=== PATIENT | female | born 1970 | race African-American/Black ===

== ENCOUNTER 2016-07-26 22:01 | Emergency (ER) | payer MEDICAID ==
[~2016-07-26] VITALS: Ht 167.6 cm; Wt 127.0 kg
[2016-07-26] MEDS ORDERED: NS 55ml IV ONE (22:21)
[2016-07-26] MEDS ORDERED: HYDROmorphone 1mg/ml Carpuject ONE (22:37)
[2016-07-26] MEDS ORDERED: HYDROmorphone 1 MG in NS 55 ML IV ONE (22:45)
[2016-07-26 22:51] LABS: BASOPHILS % (AUTO) 0.7 % (0.0-2.0); LYMPHOCYTES % (AUTO) 13.5 % (20.0-45.0); MEAN CORPUSCULAR HEMOGLOBIN 28.7 PG (27.0-31.0); MEAN CORPUSCULAR HGB CONC 35.6 G/DL (32.0-36.0); MEAN CORPUSCULAR VOLUME 81 FL (80-99); MEAN PLATELET VOLUME 7.8 FL (6.5-10.1); MONOCYTES % (AUTO) 3.6 % (1.0-10.0); NEUTROPHILS % (AUTO) 82.2 % (45.0-75.0); PLATELET COUNT 212 K/UL (150-450); RED BLOOD COUNT 5.38 M/UL (4.20-5.40); RED CELL DISTRIBUTION WIDTH 13.4 % (11.6-14.8); WHITE BLOOD COUNT 16.6 K/UL (4.8-10.8)
[2016-07-26 22:52] LABS: APPEARANCE,URINE CLEAR; KETONES,URINE 3+ (NEGATIVE); LEUKOCYTE ESTERASE ,URINE 1+ (NEGATIVE); NITRITE,URINE NEGATIVE (NEGATIVE); PH,URINE 5 (4.5-8.0); PROTEIN,URINE 2+ (NEGATIVE); UROBILINOGEN,URINE NORMAL MG/DL (0.0-1.0)
[2016-07-26 23:03] LABS: BACTERIA,URINE FEW /HPF; SQUAMOUS EPITHELIAL CELL,UR FEW /LPF (NONE/OCC)
[2016-07-26 23:06] LABS: ALANINE AMINOTRANSFERASE 9 U/L (3-33); ANION GAP 19 (5-15); ASPARTATE AMINO TRANSFERASE 12 U/L (5-40); CALCIUM 9.8 mg/dL (8.6-10.2); CARBON DIOXIDE 19 mEQ/L (20-30); CHLORIDE 99 mEQ/L (98-107); CREATININE 0.9 mg/dL (0.5-0.9); GLOMERULAR FILTRATION RATE > 60 mL/min (>60); HEMOLYSIS 3; LIPASE 17 U/L (< 60); POTASSIUM 3.4 mEQ/L (3.4-4.9); SODIUM 137 mEQ/L (135-145); TOTAL PROTEIN 8.4 g/dL (6.6-8.7)
[2016-07-26 23:37] VITALS: BP 142/87
[2016-07-26] MEDS ORDERED: ZOFRAN4 MG ORAL (23:47)
--- NOTE | 2016-07-26 23:47 | Emergency Room Report ---
History of Present Illness General Chief Complaint: Chest Pain Source: Patient, EMS Present Illness HPI Is a 46-year-old female with no significant past medical history. She said any marijuana user. She presents with chief complaint of abdominal pain with vomiting and diarrhea. Has burning sensation in her chest. She was concerned and she called 911. She said that she chest pain. She was given nitroglycerin and aspirin without much relief. No fever or chills. No shortness of breath or exertional component. Similar symptom in the past. Allergies: Coded Allergies: POTASSIUM (Verified Allergy, Unknown, 07/26/16) Patient History Past Medical History: see triage record, old chart reviewed, HTN Past Surgical History: other Pertinent Family History: none Social History: Reports: drug use - MJ, Denies: smoking Last Menstrual Period: JULY 03 Now: No Immunizations: other Reviewed Nursing Documentation: PMH: Agreed, PSxH: Agreed Nursing Documentation-PMH Hx Hypertension: Yes Review of Systems Eye: Denies: blurred vision, eye pain ENT: Denies: ear pain, nose congestion, throat swelling Respiratory: Denies: cough, shortness of breath Cardiovascular: Reports: chest pain, Denies: palpitations Gastrointestinal: Reports: abdominal pain, vomiting Musculoskeletal: Denies: back pain, joint pain Skin: Denies: rash Neurological: Denies: headache, numbness Endocrine: Denies: increased thirst, increased urine Hematologic/Lymphatic: Denies: easy bruising All Other Systems: negative except mentioned in HPI Physical Exam Vital Signs Date Time Temp Pulse Resp B/P Pulse Ox O2 Delivery O2 Flow Rate FiO2 07/26/16 22:02 98.1 96 18 133/93 98 Room Air vitals normal. Sp02 EP Interpretation: reviewed, normal General Appearance: well appearing, no apparent distress, alert Head: normocephalic, atraumatic Eyes: bilateral eye EOMI, bilateral eye PERRL ENT: hearing grossly normal, normal pharynx Neck: full range of motion, supple, no meningismus Respiratory: chest non-tender, lungs clear, normal breath sounds Cardiovascular #1: regular rate, rhythm, no murmur Gastrointestinal: normal bowel sounds, non tender, no mass, no organomegaly, no bruit, non-distended Musculoskeletal: back normal, gait/station normal, normal range of motion Psychiatric: mood/affect normal Skin: warm/dry Medical Decision Making Diagnostic Impression: Primary Impression: Chest pain Qualified Codes: R07.9 - Chest pain, unspecified Additional Impressions: Nausea vomiting and diarrhea Proteinuria Qualified Codes: R80.9 - Proteinuria, unspecified ER Course Is present with vomiting and diarrhea. Her chest pain is probably reflux in nature. No evidence of ACS, PE, dissection to name a few. No evidence of obstruction. She felt better now. This may be cyclic vomiting syndrome secondary to marijuana abuse. Lab Results Impression Labs with mild leukocytosis EKG Diagnostic Results Rate: normal Rhythm: NSR ST Segments: no acute changes Rhythm Strip Diag. Results EP Interpretation: yes Rate: 98 Rhythm: NSR, no PVC's, no ectopy Last Vital Signs Date Time Temp Pulse Resp B/P Pulse Ox O2 Delivery O2 Flow Rate FiO2 07/26/16 23:37 99.0 96 22 142/87 100 Room Air Status: improved Disposition: HOME, SELF-CARE Condition: Stable Scripts Ondansetron (Zofran) 4 Mg Tablet 4 MG ORAL Q6H Y for Nausea & Vomiting, #10 TAB 0 Refills Prov: ERIC EASTMAN M.D. 07/26/16 Referrals: NON PHYSICIAN (PCP) Additional Instructions: Follow up with your doctor in 7 days. Return if worse. ERIC EASTMAN M.D. July 26, 2016 23:47
[2016-07-27 00:12] VITALS: BP 142/87
--- NOTE | 2016-07-27 16:22 | Cardiology Report ---
APPROVED REPORT EKG Measurement Heart [id number] Sinus tachycardia Possible Left atrial enlargement Borderline ECG
== END 2016-07-27 00:15 | disposition home or self-care (01) ==
LOC: EDBD 22:01 → EMR 22:20
DX: R07.89 Other chest pain (principal); R11.2 Nausea with vomiting, unspecified; R19.7 Diarrhea, unspecified; R80.9 Proteinuria, unspecified
CPT/HCPCS: 36415; 80053; 81003; 81025; 83690; 85025; 93005; 99283; J1170; J2405

== ENCOUNTER 2016-09-15 19:33 | Emergency (ER) | payer MEDICAID ==
[~2016-09-15] VITALS: Ht 167.6 cm; Wt 158.8 kg
[~2016-09-15 19:33] MED LIST: NKM; ZOFRAN4 MG ORAL
[2016-09-15] MEDS ORDERED: Famotidine 20 MG/ 2ML VIAL IVP ONE (20:00)
[2016-09-15] MEDS ORDERED: Metoclopramide 10mg/2ml Inj IVP ONE (20:00)
[2016-09-15] MEDS ORDERED: DiphenhydrAMINE 50mg/ml Inj IVP ONE (20:00)
[2016-09-15] MEDS ORDERED: Morphine Sulfate 2mg/ml Inj IVP ONE (20:00)
[2016-09-15 21:13] LABS: BASOPHILS % (AUTO) 0.7 % (0.0-2.0); EOSINOPHILS % (AUTO) 0.2 % (0.0-3.0); MEAN CORPUSCULAR HEMOGLOBIN 26.8 PG (27.0-31.0); MEAN CORPUSCULAR HGB CONC 33.4 G/DL (32.0-36.0); MEAN CORPUSCULAR VOLUME 80 FL (80-99); MONOCYTES % (AUTO) 3.1 % (1.0-10.0); PLATELET COUNT 230 K/UL (150-450); RED BLOOD COUNT 5.22 M/UL (4.20-5.40); RED CELL DISTRIBUTION WIDTH 13.3 % (11.6-14.8); WHITE BLOOD COUNT 12.8 K/UL (4.8-10.8)
[2016-09-15 21:13] LABS: APPEARANCE,URINE CLOUDY; KETONES,URINE 3+ (NEGATIVE); LEUKOCYTE ESTERASE ,URINE NEGATIVE (NEGATIVE); NITRITE,URINE NEGATIVE (NEGATIVE); PH,URINE 6 (4.5-8.0); PROTEIN,URINE 2+ (NEGATIVE); UROBILINOGEN,URINE NORMAL MG/DL (0.0-1.0)
[2016-09-15 21:20] LABS: PROTHROMBIN TIME 10.1 SEC (9.30-11.50)
[2016-09-15 21:22] LABS: BACTERIA,URINE FEW /HPF; RBC,URINE 0-2 /HPF (0 - 2); SQUAMOUS EPITHELIAL CELL,UR FEW /LPF (NONE/OCC); WBC,URINE 0-2 /HPF (0 - 2)
[2016-09-15 21:27] LABS: ALANINE AMINOTRANSFERASE 23 U/L (3-33); ANION GAP 19 (5-15); ASPARTATE AMINO TRANSFERASE 32 U/L (5-40); CALCIUM 9.8 mg/dL (8.6-10.2); CARBON DIOXIDE 20 mEQ/L (20-30); CHLORIDE 97 mEQ/L (98-107); CREATININE 0.8 mg/dL (0.5-0.9); GLOMERULAR FILTRATION RATE > 60 mL/min (>60); HEMOLYSIS 2; LIPASE 22 U/L (< 60); POTASSIUM 3.4 mEQ/L (3.4-4.9); SODIUM 136 mEQ/L (135-145); TOTAL PROTEIN 8.2 g/dL (6.6-8.7)
[2016-09-15 22:30] VITALS: BP 125/79
--- NOTE | 2016-09-15 22:35 | Emergency Room Report ---
History of Present Illness General Chief Complaint: Vomiting Source: Patient Present Illness Allergies: Coded Allergies: POTASSIUM (Verified Allergy, Unknown, 07/26/16) Patient History Past Medical History: see triage record Last Menstrual Period: unk Reviewed Nursing Documentation: PMH: Agreed, PSxH: Agreed Nursing Documentation-PMH Past Medical History: No Stated History Hx Hypertension: Yes Physical Exam Vital Signs Date Time Temp Pulse Resp B/P Pulse Ox O2 Delivery O2 Flow Rate FiO2 09/15/16 19:29 97.9 84 16 136/89 97 Room Air Medical Decision Making Diagnostic Impression: Primary Impression: Abdominal pain Additional Impression: Vomiting ER Course Patient improved. Kena PO. Laboratory Tests Test 09/15/16 19:37 09/15/16 19:50 Urine Color Pale yellow Urine Appearance Cloudy Urine pH 6 (4.5-8.0) Urine Specific [place] 1.010 (1.005-1.035) Urine Protein 2+ (NEGATIVE) H Urine Glucose (UA) Negative (NEGATIVE) Urine Ketones 3+ (NEGATIVE) H Urine Occult Blood Negative (NEGATIVE) Urine Nitrite Negative (NEGATIVE) Urine Bilirubin Negative (NEGATIVE) Urine Urobilinogen Normal MG/DL (0.0-1.0) Urine Leukocyte Esterase Negative (NEGATIVE) Urine RBC 0-2 /HPF (0 - 2) Urine WBC 0-2 /HPF (0 - 2) Urine Squamous Epithelial Cells Few /LPF (NONE/OCC) Urine Bacteria Few /HPF (NONE) White Blood Count 12.8 K/UL (4.8-10.8) H Red Blood Count 5.22 M/UL (4.20-5.40) Hemoglobin 14.0 G/DL (12.0-16.0) Hematocrit 41.8 % (37.0-47.0) Mean Corpuscular Volume 80 FL (80-99) Mean Corpuscular Hemoglobin 26.8 PG (27.0-31.0) L Mean Corpuscular Hemoglobin Concent 33.4 G/DL (32.0-36.0) Red Cell Distribution Width 13.3 % (11.6-14.8) Platelet Count 230 K/UL (150-450) Mean Platelet Volume 8.0 FL (6.5-10.1) Neutrophils (%) (Auto) 81.0 % (45.0-75.0) H Lymphocytes (%) (Auto) 15.0 % (20.0-45.0) L Monocytes (%) (Auto) 3.1 % (1.0-10.0) Eosinophils (%) (Auto) 0.2 % (0.0-3.0) Basophils (%) (Auto) 0.7 % (0.0-2.0) Prothrombin Time 10.1 SEC (9.30-11.50) Prothrombin Time INR 1.0 (0.9-1.1) PTT 26 SEC (23-33) Sodium Level 136 mEQ/L (135-145) Potassium Level 3.4 mEQ/L (3.4-4.9) Chloride Level 97 mEQ/L (98-107) L Carbon Dioxide Level 20 mEQ/L (20-30) Anion Gap 19 (5-15) H Blood Urea Nitrogen 9 mg/dL (7-23) Creatinine 0.8 mg/dL (0.5-0.9) Estimate Glomerular Filtration Rate > 60 mL/min (>60) Glucose Level 112 mg/dL (74-106) H Calcium Level 9.8 mg/dL (8.6-10.2) Total Bilirubin 0.6 mg/dL (0.0-1.2) Aspartate Amino Transferase (AST) 32 U/L (5-40) Alanine Aminotransferase (ALT) 23 U/L (3-33) Alkaline Phosphatase 66 U/L (35-104) Total Protein 8.2 g/dL (6.6-8.7) Albumin 4.2 g/dL (3.5-5.2) Globulin 4.0 g/dL Albumin/Globulin Ratio 1.0 (1.0-2.7) Lipase 22 U/L (< 60) EKG Diagnostic Results Rate: normal Rhythm: NSR ST Segments: no acute changes Rhythm Strip Diag. Results EP Interpretation: yes Rhythm: NSR, no PVC's, no ectopy Status: improved Referrals: NOT CHOSEN ABRAHAM/,REFERRING (PCP) Alejandro Gutierrez M.D. Sep 15, 2016 22:35
[2016-09-15] MEDS ORDERED: MAALOX MAXIMUM355 M1 PO (23:03)
[2016-09-15] MEDS ORDERED: PEPCID20 MG ORAL (23:03)
[2016-09-15] MEDS ORDERED: ACETAMINOPHEN-1 EAC1 ORAL (23:03)
[2016-09-15] MEDS ORDERED: PHENERGAN25 M1 ORAL (23:03)
[2016-09-15 23:21] VITALS: BP 110/89
== END 2016-09-15 23:24 | disposition home or self-care (01) ==
LOC: EDBD 19:33 → EMR 21:08
DX: R11.10 Vomiting, unspecified (principal); R10.9 Unspecified abdominal pain; I10 Essential (primary) hypertension
CPT/HCPCS: 36415; 80053; 81003; 83690; 85025; 85610; 85730; 93005; 96374; 96375; 99284; J1200; J2270; J2765; S0028

== ENCOUNTER 2017-06-29 19:26 | Inpatient (IN) | payer MEDICAID ==
[~2017-06-29] VITALS: Ht 167.6 cm; Wt 170.1 kg
[~2017-06-29 19:26] MED LIST changes: +ACETAMINOPHEN-1 EAC1 ORAL; +MAALOX MAXIMUM355 M1 PO; +PEPCID20 MG ORAL; +PHENERGAN25 M1 ORAL
[2017-06-29] MEDS ORDERED: NORCO 10-325 T1 EACH ORAL (19:29)
[2017-06-29 19:40] VITALS: BP 150/88
[2017-06-29] MEDS ORDERED: Morphine Sulfate 2mg/ml Inj IVP ONE (19:45)
--- NOTE | 2017-06-29 19:45 | Emergency Room Report ---
History of Present Illness General Chief Complaint: Abdominal Pain Source: Patient Present Illness HPI Patient present with diffuse lower abdominal pain Started on Monday Patient reports that she had a cholecystectomy in the middle of April Denies any fevers or chills Denies any chest pain or shortness of breath Patient did have several vomiting episodes Denies any diarrhea denies any dysuria frequency Allergies: Coded Allergies: POTASSIUM (Verified Allergy, Unknown, 07/26/16) Patient History Past Medical History: see triage record Pertinent Family History: none Now: No Reviewed Nursing Documentation: PMH: Agreed; PSxH: Agreed Nursing Documentation-PMH Hx Hypertension: Yes Review of Systems All Other Systems: negative except mentioned in HPI Physical Exam Vital Signs Date Time Temp Pulse Resp B/P (MAP) Pulse Ox O2 Delivery O2 Flow Rate FiO2 06/29/17 19:20 98.1 98 18 155/89 95 Room Air 98.1 Sp02 EP Interpretation: reviewed, normal General Appearance: well appearing, no apparent distress Head: normocephalic, atraumatic Eyes: bilateral eye PERRL, bilateral eye EOMI ENT: hearing grossly normal, normal pharynx, TMs + canals normal, uvula midline Neck: full range of motion, supple, no meningismus, no bony tend Respiratory: lungs clear, normal breath sounds, no rhonchi, no respiratory distress, no retraction, no accessory muscle use Cardiovascular #1: normal peripheral pulses, regular rate, rhythm, no edema, no gallop, no JVD, no murmur Gastrointestinal: normal bowel sounds, no organomegaly, non-distended, no guarding, no hernia, no pulsatile mass, no rebound, tenderness - Patient is uncomfortable diffusely Genitourinary: no CVA tenderness Musculoskeletal: normal inspection Neurologic: oriented x3, responsive, agricultural loan officer III-XII nml as tested, motor strength/ tone normal, sensory intact Psychiatric: mood/affect normal Skin: normal color, no rash, warm/dry, palpation normal Lymphatic: normal inspection, no adenopathy Medical Decision Making Diagnostic Impression: Primary Impression: Vomiting Additional Impression: Abdominal pain ER Course With the history exam and presentation, multiple differentials considered, including but not limited to appendicitis, gastritis, cholecystitis, diverticulitis Given the patient's previous history bowel obstruction also considered Patient unfortunately does not meet weight limits for CAT scan imaging However x-ray imaging was obtained does not show any signs of free air Patient's blood work is also appropriate Patient however remains nauseated and vomited after acute intervention Therefore patient had NG tube placed further antiemetics and will require further inpatient care Labs Test 06/29/17 19:50 White Blood Count 12.4 K/UL (4.8-10.8) Red Blood Count 5.61 M/UL (4.20-5.40) Hemoglobin 14.0 G/DL (12.0-16.0) Hematocrit 42.9 % (37.0-47.0) Mean Corpuscular Volume 77 FL (80-99) Mean Corpuscular Hemoglobin 25.0 PG (27.0-31.0) Mean Corpuscular Hemoglobin Concent 32.6 G/DL (32.0-36.0) Red Cell Distribution Width 14.0 % (11.6-14.8) Platelet Count 221 K/UL (150-450) Mean Platelet Volume 8.0 FL (6.5-10.1) Neutrophils (%) (Auto) 77.4 % (45.0-75.0) Lymphocytes (%) (Auto) 16.7 % (20.0-45.0) Monocytes (%) (Auto) 4.9 % (1.0-10.0) Eosinophils (%) (Auto) 0.2 % (0.0-3.0) Basophils (%) (Auto) 0.9 % (0.0-2.0) Urine Color Yellow Urine Appearance Slightly cloudy Urine pH 7 (4.5-8.0) Urine Specific [place] 1.005 (1.005-1.035) Urine Protein 2+ (NEGATIVE) Urine Glucose (UA) Negative (NEGATIVE) Urine Ketones 2+ (NEGATIVE) Urine Occult Blood 1+ (NEGATIVE) Urine Nitrite Negative (NEGATIVE) Urine Bilirubin Negative (NEGATIVE) Urine Urobilinogen Normal MG/DL (0.0-1.0) Urine Leukocyte Esterase 1+ (NEGATIVE) Urine RBC 0-2 /HPF (0 - 2) Urine WBC 2-4 /HPF (0 - 2) Urine Squamous Epithelial Cells Many /LPF (NONE/OCC) Urine Bacteria Few /HPF (NONE) Urine Trichomonas Occasional /HPF (NONE) Urine HCG, Qualitative Negative (NEGATIVE) Sodium Level 138 MMOL/L (136-145) Potassium Level 3.5 MMOL/L (3.5-5.1) Chloride Level 104 MMOL/L (98-107) Carbon Dioxide Level 25 MMOL/L (21-32) Anion Gap 9 mmol/L (5-15) Blood Urea Nitrogen 9 mg/dL (7-18) Creatinine 0.8 MG/DL (0.55-1.30) Estimat Glomerular Filtration Rate > 60 mL/min (>60) Glucose Level 113 MG/DL (74-106) Calcium Level 9.4 MG/DL (8.5-10.1) Total Bilirubin 0.6 MG/DL (0.2-1.0) Aspartate Amino Transf (AST/SGOT) 20 U/L (15-37) Alanine Aminotransferase (ALT/SGPT) 20 U/L (12-78) Alkaline Phosphatase 94 U/L (46-116) Total Protein 8.1 G/DL (6.4-8.2) Albumin 3.9 G/DL (3.4-5.0) Globulin 4.2 g/dL Albumin/Globulin Ratio 0.9 (1.0-2.7) Lipase 79 U/L (73-393) Rhythm Strip Diag. Results EP Interpretation: yes Rate: 66 Rhythm: NSR, no PVC's, no ectopy Other X-Ray Diagnostic Results Other X-Ray Diagnostic Results : X-Ray ordered: Abdominal series # of Views/Limited Vs Complete: 4 View Indication: Pain EP Interpretation: Yes Interpretation: no soft tissue swelling, nonspecific bowel gas, other - No free air Impression: No acute disease Electronically Signed by: Refugio Herrera DO Last Vital Signs Date Time Temp Pulse Resp B/P (MAP) Pulse Ox O2 Delivery O2 Flow Rate FiO2 06/29/17 19:20 98.1 98 18 155/89 95 Room Air 98.1 Status: improved Disposition: ADMITTED INPATIENT Condition: Serious Refugio Herrera DO Jun 29, 2017 19:45
[2017-06-29 20:11] LABS: ANION GAP 9 mmol/L (5-15); BLOOD UREA NITROGEN 9 mg/dL (7-18); CALCIUM 9.4 MG/DL (8.5-10.1); CARBON DIOXIDE 25 MMOL/L (21-32); CHLORIDE 104 MMOL/L (98-107); CREATININE 0.8 MG/DL (0.55-1.30); POTASSIUM 3.5 MMOL/L (3.5-5.1); SODIUM 138 MMOL/L (136-145)
[2017-06-29 20:12] LABS: APPEARANCE,URINE SLIGHTLY CLOUDY; BILIRUBIN, URINE NEGATIVE (NEGATIVE); COLOR,URINE YELLOW; GLUCOSE, URINE (UA) NEGATIVE (NEGATIVE); KETONES,URINE 2+ (NEGATIVE); LEUKOCYTE ESTERASE ,URINE 1+ (NEGATIVE); NITRITE,URINE NEGATIVE (NEGATIVE); PH,URINE 7 (4.5-8.0); PROTEIN,URINE 2+ (NEGATIVE); UROBILINOGEN,URINE NORMAL MG/DL (0.0-1.0)
[2017-06-29 20:14] LABS: BASOPHILS % (AUTO) 0.9 % (0.0-2.0); EOSINOPHILS % (AUTO) 0.2 % (0.0-3.0); HEMATOCRIT 42.9 % (37.0-47.0); LYMPHOCYTES % (AUTO) 16.7 % (20.0-45.0); MEAN CORPUSCULAR VOLUME 77 FL (80-99); MONOCYTES % (AUTO) 4.9 % (1.0-10.0); NEUTROPHILS % (AUTO) 77.4 % (45.0-75.0); PLATELET COUNT 221 K/UL (150-450); RED BLOOD COUNT 5.61 M/UL (4.20-5.40); WHITE BLOOD COUNT 12.4 K/UL (4.8-10.8)
[2017-06-29 20:15] LABS: ALANINE AMINOTRANSFERASE 20 U/L (12-78); ALBUMIN 3.9 G/DL (3.4-5.0); ALBUMIN/GLOBULIN RATIO 0.9 (1.0-2.7); ALKALINE PHOSPHATASE 94 U/L (46-116); ASPARTATE AMINO TRANSFERASE 20 U/L (15-37); BILIRUBIN,TOTAL 0.6 MG/DL (0.2-1.0)
[2017-06-29] MEDS ORDERED: Metoclopramide 10mg/2ml Inj IVP ONE (21:45)
[2017-06-29] MEDS ORDERED: LORazepam Inj 2mg/ml 1ml IV PRN (22:00)
[2017-06-29] MEDS ORDERED: Mylanta II UD 30ml ORAL PRN (22:00)
[2017-06-29] MEDS ORDERED: Miralax 17gm pkt ORAL PRN (22:00)
[2017-06-29] MEDS ORDERED: Nitroglycerin Subl 0.4mg tab SL PRN (22:00)
[2017-06-29 22:05] VITALS: BP 148/86
[2017-06-29] MEDS: D5 1/2NS 1,000 ML IV SCH (23:52)
[2017-06-30] VITALS (7 sets, daily range): BP systolic 131–164; BP diastolic 76–99
[2017-06-30] MEDS: Morphine Sulfate 2mg/ml Inj IVP PRN ×2 (00:54→05:54)
[2017-06-30 07:18] LABS: BASOPHILS % (AUTO) 0.8 % (0.0-2.0); EOSINOPHILS % (AUTO) 0.1 % (0.0-3.0); HEMATOCRIT 38.7 % (37.0-47.0); HEMOGLOBIN 12.8 G/DL (12.0-16.0); LYMPHOCYTES % (AUTO) 17.2 % (20.0-45.0); MEAN CORPUSCULAR VOLUME 77 FL (80-99); MONOCYTES % (AUTO) 6.5 % (1.0-10.0); NEUTROPHILS % (AUTO) 75.4 % (45.0-75.0); PLATELET COUNT 224 K/UL (150-450); RED BLOOD COUNT 5.05 M/UL (4.20-5.40); RED CELL DISTRIBUTION WIDTH 13.7 % (11.6-14.8); WHITE BLOOD COUNT 12.1 K/UL (4.8-10.8)
[2017-06-30 07:39] LABS: ALANINE AMINOTRANSFERASE 20 U/L (12-78); ALBUMIN 3.4 G/DL (3.4-5.0); ALBUMIN/GLOBULIN RATIO 0.8 (1.0-2.7); ALKALINE PHOSPHATASE 81 U/L (46-116); AMYLASE 66 U/L (25-115); ANION GAP 10 mmol/L (5-15); ASPARTATE AMINO TRANSFERASE 12 U/L (15-37); BILIRUBIN,TOTAL 0.6 MG/DL (0.2-1.0); BLOOD UREA NITROGEN 9 mg/dL (7-18); CALCIUM 9.2 MG/DL (8.5-10.1); CARBON DIOXIDE 25 MMOL/L (21-32); CHLORIDE 104 MMOL/L (98-107); CREATININE 0.9 MG/DL (0.55-1.30); SODIUM 139 MMOL/L (136-145)
[2017-06-30] MEDS: Pantoprazole Inj IV SCH (08:54)
[2017-06-30] MEDS: Heparin 5000 units/ml inj SUBQ SCH ×2 (09:06→20:08)
--- NOTE | 2017-06-30 10:44 | Diagnostic Imaging Report ---
Indication: Abdominal pain Technique: Supine view of the abdomen Comparison: none Findings: Bowel gas pattern is unremarkable. No unusual masses or calcifications. Cholecystectomy clips are noted. No evidence free intraperitoneal air or air-fluid levels Impression: No acute process This agrees with the preliminary interpretation provided overnight by [facility].
[2017-06-30] MEDS: D5 1/2NS 1,000 ML IV SCH (10:58)
--- NOTE | 2017-06-30 11:18 | Diagnostic Imaging Report ---
Indication: Status post nasogastric tube placement Technique: Supine view of the abdomen Comparison: 2 hours earlier Findings: Interim placement of a nasogastric tube, tip of which projects at the level of the gastric antrum/body junction, in good position. Bowel gas pattern is unremarkable Impression: Satisfactory position of nasogastric tube This agrees with the preliminary interpretation provided overnight by [facility].
--- NOTE | 2017-06-30 11:22 | Diagnostic Imaging Report ---
Indication: Post nasogastric tube placement Technique: One view of the upper abdomen Comparison: 3 hours earlier Findings: Again demonstrated is a nasogastric tube, tip position on current exam in the gastric fundus. Bowel gas pattern is grossly unremarkable. There are cholecystectomy clips Impression: Satisfactory nasogastric intubation. This agrees with the preliminary interpretation provided overnight by [facility].
--- NOTE | 2017-06-30 11:59 | General Progress Note ---
Assessment/Plan Problem List: (1) Gastroenteritis ICD Codes: K52.9 - Noninfective gastroenteritis and colitis, unspecified SNOMED: 98795244 (2) Obesity ICD Codes: E66.9 - Obesity, unspecified SNOMED: 479049546, 556523862 (3) S/P cholecystectomy ICD Codes: Z90.49 - Acquired absence of other specified parts of digestive tract SNOMED: 92501138, 25821597, [id number] (4) Abdominal pain ICD Codes: R10.9 - Unspecified abdominal pain SNOMED: 21736084 (5) Vomiting ICD Codes: R11.10 - Vomiting, unspecified SNOMED: 183769430 Assessment/Plan possible gastroenteritis advance diet fu stool studies dc pepcid dc miralax Subjective ROS Limited/Unobtainable: Yes Allergies: Coded Allergies: POTASSIUM (Verified Allergy, Unknown, 07/26/16) Subjective diarrhea Objective Last 24 Hour Vital Signs Date Time Temp Pulse Resp B/P (MAP) Pulse Ox O2 Delivery O2 Flow Rate FiO2 06/30/17 08:00 98.6 71 20 151/77 95 Room Air 98.6 06/30/17 04:00 97.6 72 18 137/80 95 Room Air 97.6 06/30/17 00:30 98.1 74 16 155/87 98 Room Air 98.1 06/30/17 00:30 97.6 72 18 164/87 94 Room Air 97.6 06/30/17 00:15 98.1 74 16 155/87 98 Room Air 98.1 06/29/17 22:05 74 16 148/86 99 Room Air 06/29/17 20:31 98.1 06/29/17 20:01 98.1 06/29/17 19:40 98.2 78 17 150/88 96 Room Air 98.2 06/29/17 19:20 98.1 98 18 155/89 95 Room Air 98.1 Intake and Output 06/29/17 06/30/17 19:00 07:00 Intake Total 1450 ml Output Total 2150 ml Balance -700 ml Intake IV Total 1450 ml Output Gastric Drainage Total 1150 ml Emesis 1000 ml # Voids 4 Laboratory Tests 06/29/17 19:50: White Blood Count 12.4H, Red Blood Count 5.61H, Hemoglobin 14.0, Hematocrit 42.9 , Mean Corpuscular Volume 77L, Mean Corpuscular Hemoglobin 25.0L, Mean Corpuscular Hemoglobin Concent 32.6, Red Cell Distribution Width 14.0, Platelet Count 221, Mean Platelet Volume 8.0, Neutrophils (%) (Auto) 77.4H, Lymphocytes ( %) (Auto) 16.7L, Monocytes (%) (Auto) 4.9, Eosinophils (%) (Auto) 0.2, Basophils (%) (Auto) 0.9, Urine Color Yellow, Urine Appearance Slightly cloudy, Urine pH 7, Urine Specific [place] 1.005, Urine Protein 2+H, Urine Glucose (UA) Negative, Urine Ketones 2+H, Urine Occult Blood 1+H, Urine Nitrite Negative, Urine Bilirubin Negative, Urine Urobilinogen Normal, Urine Leukocyte Esterase 1+ H, Urine RBC 0-2, Urine WBC 2-4, Urine Squamous Epithelial Cells ManyH, Urine Bacteria Few, Urine Trichomonas Occasional, Urine HCG, Qualitative Negative, Sodium Level 138, Potassium Level 3.5, Chloride Level 104, Carbon Dioxide Level 25, Anion Gap 9, Blood Urea Nitrogen 9, Creatinine 0.8, Estimat Glomerular Filtration Rate > 60, Glucose Level 113H, Calcium Level 9.4, Total Bilirubin 0.6 , Aspartate Amino Transf (AST/SGOT) 20, Alanine Aminotransferase (ALT/SGPT) 20, Alkaline Phosphatase 94, Total Protein 8.1, Albumin 3.9, Globulin 4.2, Albumin/ Globulin Ratio 0.9L, Lipase 79 06/30/17 06:35: White Blood Count 12.1H, Red Blood Count 5.05, Hemoglobin 12.8, Hematocrit 38.7 , Mean Corpuscular Volume 77L, Mean Corpuscular Hemoglobin 25.3L, Mean Corpuscular Hemoglobin Concent 33.0, Red Cell Distribution Width 13.7, Platelet Count 224, Mean Platelet Volume 8.6, Neutrophils (%) (Auto) 75.4H, Lymphocytes ( %) (Auto) 17.2L, Monocytes (%) (Auto) 6.5, Eosinophils (%) (Auto) 0.1, Basophils (%) (Auto) 0.8, Sodium Level 139, Potassium Level 3.0L, Chloride Level 104, Carbon Dioxide Level 25, Anion Gap 10, Blood Urea Nitrogen 9, Creatinine 0.9, Estimat Glomerular Filtration Rate > 60, Glucose Level 123H, Calcium Level 9.2, Total Bilirubin 0.6, Aspartate Amino Transf (AST/SGOT) 12L, Alanine Aminotransferase (ALT/SGPT) 20, Alkaline Phosphatase 81, Total Protein 7.9, Albumin 3.4, Globulin 4.5, Albumin/Globulin Ratio 0.8L, Lipase 75, Activated Partial Thromboplast Time 26, Amylase Level 66 Height (Feet): 5 Height (Inches): 6.00 Weight (Pounds): 375 General Appearance: alert EENT: normal ENT inspection Neck: supple Cardiovascular: normal rate Respiratory/Chest: lungs clear Abdomen: normal bowel sounds, non tender, soft Extremities: non-tender JULIET VITALE Jun 30, 2017 11:59
--- NOTE | 2017-06-30 16:22 | Consultation ---
History of Present Illness General Date patient seen: Jun 30, 2017 Chief Complaint: Abdominal Pain Present Illness HPI 47 year old female presented to ER with diffuse lower abdominal pain. Patient did have several vomiting episodes Denies any diarrhea denies any dysuria frequency. she is admitted to med/surg for intractable nausea and vomiting. Allergies: Coded Allergies: POTASSIUM (Verified Allergy, Unknown, 07/26/16) Medication History Scheduled Famotidine (Pepcid), 20 MG ORAL DAILY Mag Hydrox/Al Hydrox/Simeth (Maalox Maximum Strength Susp), 2 TBS PO Q6HR No Known Medications* (NKM - No Known Medications*), 0 ., (Reported) Promethazine Hcl* (Phenergan*), 25 MG ORAL Q8HR Scheduled PRN Acetaminophen With Codeine (T#3) (Tylenol #3 Tab*), 1 TAB ORAL Q6HR PRN for For Pain Hydrocodone Bit/Acetaminophen 10-325* ([place] 10-325*), 1 TAB ORAL Q4H PRN for For Pain, (Reported) Ondansetron (Zofran), 4 MG ORAL Q6H PRN for Nausea & Vomiting Patient History Healthcare decision maker Resuscitation status Advanced Directive on File Past Medical/Surgical History Past Medical/Surgical History: (1) Obesity (2) S/P cholecystectomy Review of Systems All Other Systems: negative except mentioned in HPI Physical Exam General Appearance: WD/WN Lines, tubes and drains: peripheral HEENT: normocephalic, atraumatic Neck: non-tender, supple Respiratory/Chest: chest wall non-tender, lungs clear Breasts: no masses Cardiovascular/Chest: normal peripheral pulses Abdomen: normal bowel sounds, non tender Genitourinary/Rectal: normal genital exam Extremities: non-tender Skin Exam: normal pigmentation Neurologic: rn medical inpatient services II-XII grossly normal Last 24 Hour Vital Signs Date Time Temp Pulse Resp B/P (MAP) Pulse Ox O2 Delivery O2 Flow Rate FiO2 06/30/17 12:00 97.8 80 20 147/91 95 Room Air 97.8 06/30/17 08:00 98.6 71 20 151/77 95 Room Air 98.6 06/30/17 04:00 97.6 72 18 137/80 95 Room Air 97.6 06/30/17 00:30 98.1 74 16 155/87 98 Room Air 98.1 06/30/17 00:30 97.6 72 18 164/87 94 Room Air 97.6 06/30/17 00:15 98.1 74 16 155/87 98 Room Air 98.1 06/29/17 22:05 74 16 148/86 99 Room Air 06/29/17 20:31 98.1 06/29/17 20:01 98.1 06/29/17 19:40 98.2 78 17 150/88 96 Room Air 98.2 06/29/17 19:20 98.1 98 18 155/89 95 Room Air 98.1 Intake and Output 06/29/17 06/30/17 19:00 07:00 Intake Total 1450 ml Output Total 2150 ml Balance -700 ml Intake IV Total 1450 ml Output Gastric Drainage Total 1150 ml Emesis 1000 ml # Voids 4 Laboratory Tests Test 06/29/17 19:50 06/30/17 06:35 White Blood Count 12.4 K/UL (4.8-10.8) H 12.1 K/UL (4.8-10.8) H Red Blood Count 5.61 M/UL (4.20-5.40) H 5.05 M/UL (4.20-5.40) Hemoglobin 14.0 G/DL (12.0-16.0) 12.8 G/DL (12.0-16.0) Hematocrit 42.9 % (37.0-47.0) 38.7 % (37.0-47.0) Mean Corpuscular Volume 77 FL (80-99) L 77 FL (80-99) L Mean Corpuscular Hemoglobin 25.0 PG (27.0-31.0) L 25.3 PG (27.0-31.0) L Mean Corpuscular Hemoglobin Concent 32.6 G/DL (32.0-36.0) 33.0 G/DL (32.0-36.0) Red Cell Distribution Width 14.0 % (11.6-14.8) 13.7 % (11.6-14.8) Platelet Count 221 K/UL (150-450) 224 K/UL (150-450) Mean Platelet Volume 8.0 FL (6.5-10.1) 8.6 FL (6.5-10.1) Neutrophils (%) (Auto) 77.4 % (45.0-75.0) H 75.4 % (45.0-75.0) H Lymphocytes (%) (Auto) 16.7 % (20.0-45.0) L 17.2 % (20.0-45.0) L Monocytes (%) (Auto) 4.9 % (1.0-10.0) 6.5 % (1.0-10.0) Eosinophils (%) (Auto) 0.2 % (0.0-3.0) 0.1 % (0.0-3.0) Basophils (%) (Auto) 0.9 % (0.0-2.0) 0.8 % (0.0-2.0) Urine Color Yellow Urine Appearance Slightly cloudy Urine pH 7 (4.5-8.0) Urine Specific [place] 1.005 (1.005-1.035) Urine Protein 2+ (NEGATIVE) H Urine Glucose (UA) Negative (NEGATIVE) Urine Ketones 2+ (NEGATIVE) H Urine Occult Blood 1+ (NEGATIVE) H Urine Nitrite Negative (NEGATIVE) Urine Bilirubin Negative (NEGATIVE) Urine Urobilinogen Normal MG/DL (0.0-1.0) Urine Leukocyte Esterase 1+ (NEGATIVE) H Urine RBC 0-2 /HPF (0 - 2) Urine WBC 2-4 /HPF (0 - 2) Urine Squamous Epithelial Cells Many /LPF (NONE/OCC) H Urine Bacteria Few /HPF (NONE) Urine Trichomonas Occasional /HPF (NONE) Urine HCG, Qualitative Negative (NEGATIVE) Sodium Level 138 MMOL/L (136-145) 139 MMOL/L (136-145) Potassium Level 3.5 MMOL/L (3.5-5.1) 3.0 MMOL/L (3.5-5.1) L Chloride Level 104 MMOL/L (98-107) 104 MMOL/L (98-107) Carbon Dioxide Level 25 MMOL/L (21-32) 25 MMOL/L (21-32) Anion Gap 9 mmol/L (5-15) 10 mmol/L (5-15) Blood Urea Nitrogen 9 mg/dL (7-18) 9 mg/dL (7-18) Creatinine 0.8 MG/DL (0.55-1.30) 0.9 MG/DL (0.55-1.30) Estimat Glomerular Filtration Rate > 60 mL/min (>60) > 60 mL/min (>60) Glucose Level 113 MG/DL (74-106) H 123 MG/DL (74-106) H Calcium Level 9.4 MG/DL (8.5-10.1) 9.2 MG/DL (8.5-10.1) Total Bilirubin 0.6 MG/DL (0.2-1.0) 0.6 MG/DL (0.2-1.0) Aspartate Amino Transf (AST/SGOT) 20 U/L (15-37) 12 U/L (15-37) L Alanine Aminotransferase (ALT/SGPT) 20 U/L (12-78) 20 U/L (12-78) Alkaline Phosphatase 94 U/L (46-116) 81 U/L (46-116) Total Protein 8.1 G/DL (6.4-8.2) 7.9 G/DL (6.4-8.2) Albumin 3.9 G/DL (3.4-5.0) 3.4 G/DL (3.4-5.0) Globulin 4.2 g/dL 4.5 g/dL Albumin/Globulin Ratio 0.9 (1.0-2.7) L 0.8 (1.0-2.7) L Lipase 79 U/L (73-393) 75 U/L (73-393) Activated Partial Thromboplast Time 26 SEC (23-33) Amylase Level 66 U/L (25-115) Height (Feet): 5 Height (Inches): 6.00 Weight (Pounds): 375 Medications Current Medications Medications (Trade) Dose Ordered Sig/[place] Route PRN Reason Start Time Stop Time Status Last Admin Dose Admin Acetaminophen (Tylenol) 650 mg Q4H PRN ORAL fever 06/29/17 22:00 07/29/17 21:59 Al Hydroxide/Mg Hydroxide (Mylanta II) 30 ml Q6H PRN ORAL dyspepsia 06/29/17 22:00 07/29/17 21:59 Dextrose (Dextrose 50%) STAT PRN IV Hypoglycemia 06/29/17 22:00 07/29/17 21:59 Dextrose/Sodium Chloride 1,000 ml @ 75 mls/hr [id number] IV 06/29/17 21:50 07/29/17 21:49 06/30/17 10:58 Diphenhydramine HCl (Benadryl) 25 mg Q6H PRN ORAL Itching/Pruritis 06/29/17 22:00 07/29/17 21:59 Heparin Sodium (Porcine) (Heparin 5000 units/ml) 5,000 units EVERY 12 HOURS SUBQ 06/30/17 09:00 07/30/17 08:59 06/30/17 09:06 Lorazepam (Ativan 2mg/ml 1ml) 1 mg EVERY 4 HOURS PRN IV agitation 06/29/17 22:00 07/06/17 21:59 Metoclopramide HCl (Reglan) 10 mg EVERY 6 HOURS PRN IVP servere nauasea 06/29/17 22:00 07/29/17 21:59 Morphine Sulfate (Morphine Sulfate) 2 mg EVERY 4 HOURS PRN IVP severe Pain (Pain Scale 7-10) 06/29/17 22:00 07/06/17 21:59 06/30/17 05:54 Nitroglycerin (Ntg) 0.4 mg Q5M X 3 DOSES PRN SL Prn Chest Pain 06/29/17 22:00 07/29/17 21:59 Ondansetron HCl (Zofran) 4 mg Q6H PRN IVP Nausea & Vomiting 06/29/17 22:00 07/29/17 21:59 06/30/17 10:58 Pantoprazole (Protonix) 40 mg DAILY IV 06/30/17 09:00 07/30/17 08:59 06/30/17 08:54 Promethazine HCl (Phenergan) 25 mg EVERY 8 HOURS PRN IV refractory nausea 06/29/17 22:00 07/29/17 21:59 Temazepam (Restoril) 15 mg HSPRN PRN ORAL Insomnia 06/29/17 22:00 07/06/17 21:59 Assessment/Plan Problem List: (1) Vomiting ICD Codes: R11.10 - Vomiting, unspecified SNOMED: 664436370 (2) Abdominal pain ICD Codes: R10.9 - Unspecified abdominal pain SNOMED: 49488792 (3) Gastroenteritis ICD Codes: K52.9 - Noninfective gastroenteritis and colitis, unspecified SNOMED: 87181481 (4) Obesity ICD Codes: E66.9 - Obesity, unspecified SNOMED: 239335797, 159429693 (5) S/P cholecystectomy ICD Codes: Z90.49 - Acquired absence of other specified parts of digestive tract SNOMED: 96872315, 78008951, 362528658 Assessment/Plan npo IV fluids check electrolytes GI evaluation dc home if tolerated diet. Courtney Morales MD Jun 30, 2017 16:22
--- NOTE | 2017-06-30 16:39 | History & Physical ---
History and Physical History & Physicial Darell Groves MD Jun 30, 2017 16:39
--- NOTE | 2017-06-30 18:30 | History and Physical Report ---
DATE OF ADMISSION: 06/29/2017 CHIEF COMPLAINT: Nausea, vomiting, abdominal pain. HISTORY OF PRESENT ILLNESS: This is a 47-year-old female who denies any past medical history except recent gallbladder surgery due to cholecystitis on May 11 at [facility], who was presented to the hospital and complained about nausea, vomiting, abdominal pain. Pain mostly is on the left lower quadrant associated with diarrhea. She stated that it started on Monday, 3 days ago and she denies any fever or chills. Denies any chest pain or shortness of breath. Several episodes of emesis. Denies any dysuria, frequency. Denies any diarrhea. Shortly after initial evaluation in emergency, the patient was admitted to the hospital with intractable nausea and vomiting with associated abdominal pain. PAST MEDICAL HISTORY/PAST SURGICAL HISTORY: As above. History of cholecystitis, status post recent cholecystectomy on May 11, 2017 in [facility]. MEDICATIONS: At home, Tylenol No. 3, Maalox. ALLERGIES: To potassium. SOCIAL HISTORY: Denies any smoking, alcohol, or drugs. She smokes marijuana occasionally. FAMILY HISTORY: Noncontributory. REVIEW OF SYSTEMS: Mostly as above. Denies any dysuria, frequency, hematuria. Denies any hemoptysis. Denies any hematochezia. Denies any bright red blood per rectum. Denies any loss of consciousness. Denies any suicidal or homicidal ideation. Denies any double vision. Denies any pedal edema. PHYSICAL EXAMINATION: VITAL SIGNS: On admission, significant for temperature 98.1, pulse of 98, respiration 18, and blood pressure 155/89. GENERAL: The patient is awake, responsive, in no acute distress. HEAD AND NECK: Pupils are equal and reactive to light. Extraocular movements intact. NECK: Supple. No JVD. LUNGS: Good air entry. No wheezing or rales. HEART: S1, S2. Regular rhythm. No gallops. ABDOMEN: Soft. Tender in the left lower quadrant on deep palpation which has improved drastically from the admission. Denies any , denies any rebound tenderness or fluid shift. EXTREMITIES: No cyanosis, clubbing, or edema. NEUROLOGIC: Cranial nerves II through XII grossly intact. Motor is 5/5 in all extremities. LABORATORY DATA: On admission from the ER, WBC of 12, hemoglobin of 14, hematocrit 42, platelet 221,000. Sodium 138, potassium 3.5, chloride 104, bicarbonate 25, BUN 9, creatinine 0.8, and glucose 113. Liver function is essentially unremarkable. PTT of 26. Urinalysis is +2 ketones, +1 occult blood, negative nitrite, +1 leukocyte. Negative beta-HCG. The patient had x-ray of the abdomen done and shows that no acute process. ASSESSMENT: 1. Intractable nausea and vomiting, possible due to gastroenteritis, however, cannot rule out any other etiologies such as infectious etiology. 2. Dehydration. 3. Recent history of acute cholecystitis, status post cholecystectomy. 4. Morbid obesity. 5. Hypokalemia. PLAN: Admit the patient to medical floor. We will follow up with NG tube placement and intermittent suction. We will monitor laboratory. If the patient's status improved, consider discharge home to be followed up with primary doctor as an outpatient. Start the patient on IV hydration. If the patient's status improved, consider to start her on diet and advance as tolerated. Dr. Morales, Pulmonary/Critical Care consultation. Colleen Flaherty JOB#: [id number] CC:
[2017-06-30] MEDS ORDERED: NS IV PRN (21:00)
[2017-06-30] MEDS ORDERED: PROMETHAZINE HCL IV PRN (21:00)
[2017-07-01] VITALS: BP 142/84
[2017-07-01] MEDS: D5 1/2NS 1,000 ML IV SCH ×2 (00:12→15:09)
[2017-07-01] MEDS: Metoclopramide 10mg/2ml Inj IVP PRN ×3 (02:43→17:11)
[2017-07-01 04:00] VITALS: BP 112/69
[2017-07-01] MEDS: Morphine Sulfate 2mg/ml Inj IVP PRN (05:26)
[2017-07-01 08:00] VITALS: BP 154/73
[2017-07-01 08:58] LABS: ANION GAP 10 mmol/L (5-15); BLOOD UREA NITROGEN 7 mg/dL (7-18); CALCIUM 8.9 MG/DL (8.5-10.1); CARBON DIOXIDE 25 MMOL/L (21-32); CHLORIDE 101 MMOL/L (98-107); CREATININE 0.9 MG/DL (0.55-1.30); POTASSIUM 3.1 MMOL/L (3.5-5.1); SODIUM 136 MMOL/L (136-145)
[2017-07-01] MEDS: Pantoprazole Inj IV SCH (09:24)
[2017-07-01] MEDS: Heparin 5000 units/ml inj SUBQ SCH ×2 (09:24→21:33)
[2017-07-01 12:00] VITALS: BP 106/60
--- NOTE | 2017-07-01 14:20 | Pulmonology Progress Note ---
Assessment/Plan Problems: (1) Vomiting (2) Abdominal pain (3) Gastroenteritis (4) Obesity (5) S/P cholecystectomy Assessment/Plan continue iv fluid symptomatic treatment advance diet dc morphin which might have been exacerbating nausea and vomiting Subjective ROS Limited/Unobtainable: No Interval Events: still vomiting, on clear liquid diet Allergies: Coded Allergies: POTASSIUM (Verified Allergy, Unknown, 07/26/16) Objective Last 24 Hour Vital Signs Date Time Temp Pulse Resp B/P (MAP) Pulse Ox O2 Delivery O2 Flow Rate FiO2 07/01/17 12:00 98.4 79 19 106/60 96 Room Air 98.4 07/01/17 08:00 97.8 83 20 154/73 98 Room Air 97.8 07/01/17 06:00 98.6 07/01/17 05:26 98.6 07/01/17 04:00 98.6 82 20 112/69 94 Room Air 98.6 07/01/17 00:00 97.8 71 20 142/84 98 Room Air 97.8 06/30/17 20:00 98.4 101 20 154/99 98 Room Air 98.4 06/30/17 16:00 98.3 63 20 131/76 98 Room Air 98.3 Intake and Output 06/30/17 07/01/17 19:00 07:00 Intake Total 1145 ml 1005 ml Output Total 600 ml Balance 1145 ml 405 ml Intake Oral 320 ml IV Total 825 ml 525 ml Other 480 ml Emesis 600 ml # Voids 2 2 General Appearance: WD/WN HEENT: normocephalic, atraumatic Respiratory/Chest: chest wall non-tender, lungs clear Breasts: no masses Cardiovascular: normal rate, no JVD Abdomen: soft, non tender Genitourinary: normal external genitalia Extremities: no cyanosis Microbiology Date/Time Source Procedure Growth Status 06/30/17 19:32 Stool Stool Culture Pending Resulted 06/30/17 19:32 Stool Clostridium difficile Toxin Assay - Final Resulted Laboratory Tests 07/01/17 08:40: Sodium Level 136, Potassium Level 3.1L, Chloride Level 101, Carbon Dioxide Level 25, Anion Gap 10, Blood Urea Nitrogen 7, Creatinine 0.9, Estimat Glomerular Filtration Rate > 60, Glucose Level 120H, Calcium Level 8.9 Current Medications Medications (Trade) Dose Ordered Sig/[place] Route PRN Reason Start Time Stop Time Status Last Admin Dose Admin Acetaminophen (Tylenol) 650 mg Q4H PRN ORAL fever 06/29/17 22:00 07/29/17 21:59 Al Hydroxide/Mg Hydroxide (Mylanta II) 30 ml Q6H PRN ORAL dyspepsia 06/29/17 22:00 07/29/17 21:59 Dextrose (Dextrose 50%) STAT PRN IV Hypoglycemia 06/29/17 22:00 07/29/17 21:59 Dextrose/Sodium Chloride 1,000 ml @ 75 mls/hr [id number] IV 06/29/17 21:50 07/29/17 21:49 07/01/17 00:12 Diphenhydramine HCl (Benadryl) 25 mg Q6H PRN ORAL Itching/Pruritis 06/29/17 22:00 07/29/17 21:59 Heparin Sodium (Porcine) (Heparin 5000 units/ml) 5,000 units EVERY 12 HOURS SUBQ 06/30/17 09:00 07/30/17 08:59 07/01/17 09:24 Lorazepam (Ativan 2mg/ml 1ml) 1 mg EVERY 4 HOURS PRN IV agitation 06/29/17 22:00 07/06/17 21:59 Metoclopramide HCl (Reglan) 10 mg EVERY 6 HOURS PRN IVP servere nauasea 06/29/17 22:00 07/29/17 21:59 07/01/17 09:24 Nitroglycerin (Ntg) 0.4 mg Q5M X 3 DOSES PRN SL Prn Chest Pain 06/29/17 22:00 07/29/17 21:59 Ondansetron HCl (Zofran) 4 mg Q4H PRN IVP Nausea & Vomiting 06/30/17 20:45 07/30/17 20:44 07/01/17 05:26 Pantoprazole (Protonix) 40 mg DAILY IV 06/30/17 09:00 07/30/17 08:59 07/01/17 09:24 Promethazine HCl 25 mg/Sodium Chloride 111 ml @ 222 mls/hr Q6H PRN IV Refractory Nausea/vomiting 06/30/17 21:00 07/30/17 20:59 Temazepam (Restoril) 15 mg HSPRN PRN ORAL Insomnia 06/29/17 22:00 07/06/17 21:59 Courtney Morales MD Jul 01, 2017 14:20
--- NOTE | 2017-07-01 15:28 | General Progress Note ---
Assessment/Plan Assessment/Plan Assessment (1) Gastroenteritis ICD Codes: K52.9 - Noninfective gastroenteritis and colitis, unspecified SNOMED: 97651292 (2) Obesity ICD Codes: E66.9 - Obesity, unspecified SNOMED: 509318783, 847249804 (3) S/P cholecystectomy ICD Codes: Z90.49 - Acquired absence of other specified parts of digestive tract SNOMED: 11012509, 13578461, 105943483 (4) Abdominal pain ICD Codes: R10.9 - Unspecified abdominal pain SNOMED: 11827452 (5) Vomiting ICD Codes: R11.10 - Vomiting, unspecified SNOMED: 795873881 Assessment/Plan possible gastroenteritis advance diet fu stool studies dc pepcid dc miralax Subjective Allergies: Coded Allergies: POTASSIUM (Verified Allergy, Unknown, 07/26/16) Subjective c/o some abd pain no vomiting Objective Last 24 Hour Vital Signs Date Time Temp Pulse Resp B/P (MAP) Pulse Ox O2 Delivery O2 Flow Rate FiO2 07/01/17 12:00 98.4 79 19 106/60 96 Room Air 98.4 07/01/17 08:00 97.8 83 20 154/73 98 Room Air 97.8 07/01/17 06:00 98.6 07/01/17 05:26 98.6 07/01/17 04:00 98.6 82 20 112/69 94 Room Air 98.6 07/01/17 00:00 97.8 71 20 142/84 98 Room Air 97.8 06/30/17 20:00 98.4 101 20 154/99 98 Room Air 98.4 06/30/17 16:00 98.3 63 20 131/76 98 Room Air 98.3 Intake and Output 06/30/17 07/01/17 19:00 07:00 Intake Total 1145 ml 1005 ml Output Total 600 ml Balance 1145 ml 405 ml Intake Oral 320 ml IV Total 825 ml 525 ml Other 480 ml Emesis 600 ml # Voids 2 2 Laboratory Tests 07/01/17 08:40: Sodium Level 136, Potassium Level 3.1L, Chloride Level 101, Carbon Dioxide Level 25, Anion Gap 10, Blood Urea Nitrogen 7, Creatinine 0.9, Estimat Glomerular Filtration Rate > 60, Glucose Level 120H, Calcium Level 8.9 Height (Feet): 5 Height (Inches): 6.00 Weight (Pounds): 375 Objective Obese AA woman NCAT supple CTA RRR Soft, (+) LUQ > LLQ TTP no edema nonfocal GERARD MCCALL Jul 01, 2017 15:28
[2017-07-01 16:00] VITALS: BP 99/54
--- NOTE | 2017-07-01 16:37 | Internal Med Progress Note ---
Subjective Date of Service: Jul 01, 2017 Physician Name Garg,Geni Attending Physician Darell Groves MD Current Medications Medications (Trade) Dose Ordered Sig/[place] Route PRN Reason Start Time Stop Time Status Last Admin Dose Admin Acetaminophen (Tylenol) 650 mg Q4H PRN ORAL fever 06/29/17 22:00 07/29/17 21:59 Al Hydroxide/Mg Hydroxide (Mylanta II) 30 ml Q6H PRN ORAL dyspepsia 06/29/17 22:00 07/29/17 21:59 Dextrose (Dextrose 50%) STAT PRN IV Hypoglycemia 06/29/17 22:00 07/29/17 21:59 Dextrose/Sodium Chloride 1,000 ml @ 75 mls/hr [id number] IV 06/29/17 21:50 07/29/17 21:49 07/01/17 15:09 Diphenhydramine HCl (Benadryl) 25 mg Q6H PRN ORAL Itching/Pruritis 06/29/17 22:00 07/29/17 21:59 Heparin Sodium (Porcine) (Heparin 5000 units/ml) 5,000 units EVERY 12 HOURS SUBQ 06/30/17 09:00 07/30/17 08:59 07/01/17 09:24 Lorazepam (Ativan 2mg/ml 1ml) 1 mg EVERY 4 HOURS PRN IV agitation 06/29/17 22:00 07/06/17 21:59 Metoclopramide HCl (Reglan) 10 mg EVERY 6 HOURS PRN IVP servere nauasea 06/29/17 22:00 07/29/17 21:59 07/01/17 09:24 Nitroglycerin (Ntg) 0.4 mg Q5M X 3 DOSES PRN SL Prn Chest Pain 06/29/17 22:00 07/29/17 21:59 Ondansetron HCl (Zofran) 4 mg Q4H PRN IVP Nausea & Vomiting 06/30/17 20:45 07/30/17 20:44 07/01/17 05:26 Pantoprazole (Protonix) 40 mg DAILY IV 06/30/17 09:00 07/30/17 08:59 07/01/17 09:24 Promethazine HCl 25 mg/Sodium Chloride 111 ml @ 222 mls/hr Q6H PRN IV Refractory Nausea/vomiting 06/30/17 21:00 07/30/17 20:59 Temazepam (Restoril) 15 mg HSPRN PRN ORAL Insomnia 06/29/17 22:00 07/06/17 21:59 Allergies: Coded Allergies: POTASSIUM (Verified Allergy, Unknown, 07/26/16) ROS Limited/Unobtainable: No Constitutional: Reports: no symptoms HEENT: Reports: no symptoms Respiratory: Reports: no symptoms Gastrointestinal/Abdominal: Reports: abdominal pain Genitourinary: Reports: no symptoms Neurologic/Psychiatric: Reports: no symptoms Subjective 46 YO F Admitted with intractable nausea and vomiting. Cover for Int Med-Dr Groves. Objective Last Vital Signs Date Time Temp Pulse Resp B/P (MAP) Pulse Ox O2 Delivery O2 Flow Rate FiO2 07/01/17 12:00 98.4 79 19 106/60 96 Room Air 98.4 General Appearance: no apparent distress, alert, obese EENT: PERRL/EOMI, normal ENT inspection Neck: non-tender, normal alignment, supple, normal inspection Cardiovascular: normal peripheral pulses, normal rate, regular rhythm, no gallop/murmur, no JVD Respiratory/Chest: chest wall non-tender, lungs clear, normal breath sounds, no respiratory distress, no accessory muscle use Abdomen: no organomegaly, no mass, decreased bowel sounds, distended, tender Extremities: normal range of motion, non-tender Neurologic: rehabilitation counsellor II-XII grossly normal, no motor/sensory deficits Skin: normal pigmentation, warm/dry Laboratory Tests Test 07/01/17 08:40 Sodium Level 136 MMOL/L (136-145) Potassium Level 3.1 MMOL/L (3.5-5.1) L Chloride Level 101 MMOL/L (98-107) Carbon Dioxide Level 25 MMOL/L (21-32) Anion Gap 10 mmol/L (5-15) Blood Urea Nitrogen 7 mg/dL (7-18) Creatinine 0.9 MG/DL (0.55-1.30) Estimat Glomerular Filtration Rate > 60 mL/min (>60) Glucose Level 120 MG/DL (74-106) H Calcium Level 8.9 MG/DL (8.5-10.1) Microbiology Date/Time Source Procedure Growth Status 06/30/17 19:32 Stool Stool Culture Pending Resulted 06/30/17 19:32 Stool Clostridium difficile Toxin Assay - Final Resulted Intake and Output 4/6/18 4/7/18 19:00 07:00 Intake Total 1145 ml 1005 ml Output Total 600 ml Balance 1145 ml 405 ml Intake Oral 320 ml IV Total 825 ml 525 ml Other 480 ml Emesis 600 ml # Voids 2 2 Assessment/Plan Problem List: (1) Nausea & vomiting Assessment & Plan: Resolving. See GI note. (2) Abdominal pain Assessment & Plan: Improving (3) Obesity (4) Gastroenteritis Status: tolerating diet Assessment/Plan Tolerating clear liq diet GENI GARG Jul 01, 2017 16:37
--- NOTE | 2017-07-01 17:59 | Consultation ---
History of Present Illness General Date patient seen: Jul 01, 2017 Time patient seen: 17:49 Chief Complaint: Abdominal Pain Present Illness HPI 47 y/o F with hx of HTN, recent acute cholecystitis s/p cholecystectomy mid Apr 2017 presents to ED on 06/29 diffuse lower abd pain (more in LLQ), nausea and several episodes of vomiting and diarrhea that started 2 days [employer]. Diarrhea resovled 2 days ago, nausea/vomiting resolved today. No sick contacts Denies diarrhea, dysuria, frequency, f/c, CP, SOB Afebrile mild leukocytosis. Allergies: Coded Allergies: POTASSIUM (Verified Allergy, Unknown, 07/26/16) Medication History Scheduled Famotidine (Pepcid), 20 MG ORAL DAILY Mag Hydrox/Al Hydrox/Simeth (Maalox Maximum Strength Susp), 2 TBS PO Q6HR No Known Medications* (NKM - No Known Medications*), 0 ., (Reported) Promethazine Hcl* (Phenergan*), 25 MG ORAL Q8HR Scheduled PRN Acetaminophen With Codeine (T#3) (Tylenol #3 Tab*), 1 TAB ORAL Q6HR PRN for For Pain Hydrocodone Bit/Acetaminophen 10-325* ([place] 10-325*), 1 TAB ORAL Q4H PRN for For Pain, (Reported) Ondansetron (Zofran), 4 MG ORAL Q6H PRN for Nausea & Vomiting Patient History Healthcare decision maker Resuscitation status Advanced Directive on File Patient History Narrative Pmhx: as above Shx: Denies any smoking, alcohol, or drugs. She smokes marijuana occasionally Fhx: non contributory Review of Systems All Other Systems: negative except mentioned in HPI Physical Exam Physical Exam Narrative GENERAL: The patient is awake, responsive, in no acute distress. HEAD AND NECK: Pupils are equal and reactive to light. Extraocular movements intact. NECK: Supple. No JVD. LUNGS: Good air entry. No wheezing or rales. HEART: S1, S2. Regular rhythm. No gallops. ABDOMEN: Soft. Tender in the left lower quadrant on deep palpation which has improved drastically from the admission. No rebound tenderness or fluid shift. EXTREMITIES: No cyanosis, clubbing, or edema. Last 24 Hour Vital Signs Date Time Temp Pulse Resp B/P (MAP) Pulse Ox O2 Delivery O2 Flow Rate FiO2 07/01/17 16:00 98.7 87 18 99/54 96 Room Air 98.7 07/01/17 12:00 98.4 79 19 106/60 96 Room Air 98.4 07/01/17 08:00 97.8 83 20 154/73 98 Room Air 97.8 07/01/17 06:00 98.6 07/01/17 05:26 98.6 07/01/17 04:00 98.6 82 20 112/69 94 Room Air 98.6 07/01/17 00:00 97.8 71 20 142/84 98 Room Air 97.8 06/30/17 20:00 98.4 101 20 154/99 98 Room Air 98.4 Intake and Output 06/30/17 07/01/17 19:00 07:00 Intake Total 1145 ml 1005 ml Output Total 600 ml Balance 1145 ml 405 ml Intake Oral 320 ml IV Total 825 ml 525 ml Other 480 ml Emesis 600 ml # Voids 2 2 Laboratory Tests Test 07/01/17 08:40 Sodium Level 136 MMOL/L (136-145) Potassium Level 3.1 MMOL/L (3.5-5.1) L Chloride Level 101 MMOL/L (98-107) Carbon Dioxide Level 25 MMOL/L (21-32) Anion Gap 10 mmol/L (5-15) Blood Urea Nitrogen 7 mg/dL (7-18) Creatinine 0.9 MG/DL (0.55-1.30) Estimat Glomerular Filtration Rate > 60 mL/min (>60) Glucose Level 120 MG/DL (74-106) H Calcium Level 8.9 MG/DL (8.5-10.1) Microbiology Date/Time Source Procedure Growth Status 06/30/17 19:32 Stool Stool Culture Pending Resulted 06/30/17 19:32 Stool Clostridium difficile Toxin Assay - Final Resulted Height (Feet): 5 Height (Inches): 6.00 Weight (Pounds): 375 Medications Current Medications Medications (Trade) Dose Ordered Sig/[place] Route PRN Reason Start Time Stop Time Status Last Admin Dose Admin Acetaminophen (Tylenol) 650 mg Q4H PRN ORAL fever 06/29/17 22:00 07/29/17 21:59 Al Hydroxide/Mg Hydroxide (Mylanta II) 30 ml Q6H PRN ORAL dyspepsia 06/29/17 22:00 07/29/17 21:59 Dextrose (Dextrose 50%) STAT PRN IV Hypoglycemia 06/29/17 22:00 07/29/17 21:59 Dextrose/Sodium Chloride 1,000 ml @ 75 mls/hr [id number] IV 06/29/17 21:50 07/29/17 21:49 07/01/17 15:09 Diphenhydramine HCl (Benadryl) 25 mg Q6H PRN ORAL Itching/Pruritis 06/29/17 22:00 07/29/17 21:59 Heparin Sodium (Porcine) (Heparin 5000 units/ml) 5,000 units EVERY 12 HOURS SUBQ 06/30/17 09:00 07/30/17 08:59 07/01/17 09:24 Lorazepam (Ativan 2mg/ml 1ml) 1 mg EVERY 4 HOURS PRN IV agitation 06/29/17 22:00 07/06/17 21:59 Metoclopramide HCl (Reglan) 10 mg EVERY 6 HOURS PRN IVP servere nauasea 06/29/17 22:00 07/29/17 21:59 07/01/17 17:11 Nitroglycerin (Ntg) 0.4 mg Q5M X 3 DOSES PRN SL Prn Chest Pain 06/29/17 22:00 07/29/17 21:59 Ondansetron HCl (Zofran) 4 mg Q4H PRN IVP Nausea & Vomiting 06/30/17 20:45 07/30/17 20:44 07/01/17 05:26 Pantoprazole (Protonix) 40 mg DAILY IV 06/30/17 09:00 07/30/17 08:59 07/01/17 09:24 Promethazine HCl 25 mg/Sodium Chloride 111 ml @ 222 mls/hr Q6H PRN IV Refractory Nausea/vomiting 06/30/17 21:00 07/30/17 20:59 Temazepam (Restoril) 15 mg HSPRN PRN ORAL Insomnia 06/29/17 22:00 07/06/17 21:59 Assessment/Plan Assessment/Plan Abx: None Assessment: Abd pain, Nausea/vomitin/diarrhea- suspect likely viral gastroenteritis. Diarrhea and vomiting resolved. R/o cholelithiasis -KUB: Bowel gas pattern is grossly unremarkable. There are cholecystectomy clips -Cdiff neg -Abd US: pending Mild leukocytosis -afebrile -u/a no pyuria HTN recent acute cholecystitis s/p cholecystectomy mid Apr 2017 Plan: -Continue to monitor off abx -f/u abd US -f/u cx -Monitor CBC/BMP, temperatures Thank you for this consultation. Will continue to follow along with you. Discussed with BLAINE. Karon Khan M.D. Jul 01, 2017 17:59
[2017-07-01 20:00] VITALS: BP 152/96
[2017-07-02] MEDS: D5 1/2NS 1,000 ML IV SCH (03:32)
[2017-07-02 04:00] VITALS: BP 131/67
[2017-07-02 07:24] LABS: EOSINOPHILS % (AUTO) 1.1 % (0.0-3.0); HEMATOCRIT 39.1 % (37.0-47.0); HEMOGLOBIN 12.7 G/DL (12.0-16.0); LYMPHOCYTES % (AUTO) 26.8 % (20.0-45.0); MEAN CORPUSCULAR VOLUME 77 FL (80-99); MONOCYTES % (AUTO) 9.3 % (1.0-10.0); NEUTROPHILS % (AUTO) 61.7 % (45.0-75.0); PLATELET COUNT 198 K/UL (150-450); RED BLOOD COUNT 5.08 M/UL (4.20-5.40); RED CELL DISTRIBUTION WIDTH 13.8 % (11.6-14.8); WHITE BLOOD COUNT 8.6 K/UL (4.8-10.8)
[2017-07-02 07:54] LABS: ANION GAP 10 mmol/L (5-15); BLOOD UREA NITROGEN 6 mg/dL (7-18); CALCIUM 8.9 MG/DL (8.5-10.1); CARBON DIOXIDE 26 MMOL/L (21-32); CHLORIDE 103 MMOL/L (98-107); CREATININE 0.8 MG/DL (0.55-1.30); SODIUM 139 MMOL/L (136-145)
[2017-07-02 07:56] LABS: POTASSIUM 2.7 MMOL/L (3.5-5.1)
[2017-07-02 08:00] VITALS: BP 140/88
[2017-07-02] MEDS ORDERED: D5 1/2NS w/KCl 20mEq 1,000 ML IV SCH (09:00)
[2017-07-02] MEDS: Pantoprazole Inj IV SCH (09:23)
[2017-07-02] MEDS: Heparin 5000 units/ml inj SUBQ SCH (09:32)
[2017-07-02 12:00] VITALS: BP 133/71
[2017-07-02] MEDS ORDERED: REGLAN10 MG ORAL (12:09)
--- NOTE | 2017-07-02 12:10 | Pulmonology Progress Note ---
Assessment/Plan Problems: (1) Vomiting (2) Abdominal pain (3) Gastroenteritis (4) Obesity (5) S/P cholecystectomy Assessment/Plan feeling better symptomatic treatment advance diet dc home with Reglan po advance diet slowly at home Subjective ROS Limited/Unobtainable: No Constitutional: Reports: no symptoms Respiratory: Reports: no symptoms Allergies: Coded Allergies: POTASSIUM (Verified Allergy, Intermediate, Itching, 07/02/17) Per patient - Allergic to Potassium Pill but No allergic reaction with liquid form of potassium and Banana Objective Last 24 Hour Vital Signs Date Time Temp Pulse Resp B/P (MAP) Pulse Ox O2 Delivery O2 Flow Rate FiO2 07/02/17 08:00 98.2 76 20 140/88 85 Room Air 98.2 07/02/17 04:00 98.5 76 18 131/67 96 Room Air 98.5 07/01/17 20:00 98.8 85 18 152/96 96 Room Air 98.8 07/01/17 16:00 98.7 87 18 99/54 96 Room Air 98.7 Intake and Output 07/01/17 07/02/17 19:00 07:00 Intake Total 1025 ml 825 ml Output Total 200 ml Balance 825 ml 825 ml Intake Oral 200 ml IV Total 825 ml 825 ml Emesis 200 ml # Voids 3 2 General Appearance: WD/WN Respiratory/Chest: chest wall non-tender, lungs clear Breasts: no masses Cardiovascular: normal peripheral pulses, normal rate Abdomen: normal bowel sounds, soft, non tender Extremities: no cyanosis, no clubbing Skin: no rash Microbiology Date/Time Source Procedure Growth Status 06/30/17 19:32 Stool Stool Culture Pending Resulted 06/30/17 19:32 Stool Clostridium difficile Toxin Assay - Final Resulted Laboratory Tests 07/02/17 06:55: White Blood Count 8.6, Red Blood Count 5.08, Hemoglobin 12.7, Hematocrit 39.1, Mean Corpuscular Volume 77L, Mean Corpuscular Hemoglobin 25.1L, Mean Corpuscular Hemoglobin Concent 32.6, Red Cell Distribution Width 13.8, Platelet Count 198, Mean Platelet Volume 8.0, Neutrophils (%) (Auto) 61.7, Lymphocytes (% ) (Auto) 26.8, Monocytes (%) (Auto) 9.3, Eosinophils (%) (Auto) 1.1, Basophils ( %) (Auto) 1.0, Sodium Level 139, Potassium Level 2.7*L, Chloride Level 103, Carbon Dioxide Level 26, Anion Gap 10, Blood Urea Nitrogen 6L, Creatinine 0.8, Estimat Glomerular Filtration Rate > 60, Glucose Level 114H, Calcium Level 8.9 Current Medications Medications (Trade) Dose Ordered Sig/[place] Route PRN Reason Start Time Stop Time Status Last Admin Dose Admin Acetaminophen (Tylenol) 650 mg Q4H PRN ORAL fever 06/29/17 22:00 07/29/17 21:59 Al Hydroxide/Mg Hydroxide (Mylanta II) 30 ml Q6H PRN ORAL dyspepsia 06/29/17 22:00 07/29/17 21:59 Dextrose (Dextrose 50%) STAT PRN IV Hypoglycemia 06/29/17 22:00 07/29/17 21:59 Dextrose/ Electrolytes 1,000 ml @ 75 mls/hr [id number] IV 07/02/17 09:00 08/01/17 08:59 07/02/17 09:23 Diphenhydramine HCl (Benadryl) 25 mg Q6H PRN ORAL Itching/Pruritis 06/29/17 22:00 07/29/17 21:59 Heparin Sodium (Porcine) (Heparin 5000 units/ml) 5,000 units EVERY 12 HOURS SUBQ 06/30/17 09:00 07/30/17 08:59 07/02/17 09:32 Lorazepam (Ativan 2mg/ml 1ml) 1 mg EVERY 4 HOURS PRN IV agitation 06/29/17 22:00 07/06/17 21:59 Metoclopramide HCl (Reglan) 10 mg EVERY 6 HOURS PRN IVP servere nauasea 06/29/17 22:00 07/29/17 21:59 07/01/17 17:11 Nitroglycerin (Ntg) 0.4 mg Q5M X 3 DOSES PRN SL Prn Chest Pain 06/29/17 22:00 07/29/17 21:59 Ondansetron HCl (Zofran) 4 mg Q4H PRN IVP Nausea & Vomiting 06/30/17 20:45 07/30/17 20:44 07/02/17 03:30 Pantoprazole (Protonix) 40 mg DAILY IV 06/30/17 09:00 07/30/17 08:59 07/02/17 09:23 Promethazine HCl 25 mg/Sodium Chloride 111 ml @ 222 mls/hr Q6H PRN IV Refractory Nausea/vomiting 06/30/17 21:00 07/30/17 20:59 Temazepam (Restoril) 15 mg HSPRN PRN ORAL Insomnia 06/29/17 22:00 07/06/17 21:59 Courtney Morales MD Jul 02, 2017 12:10
[2017-07-02] MEDS ORDERED: D5 1/2NS 1000ml IV ONE (14:34)
--- NOTE | 2017-07-02 15:04 | General Progress Note ---
Assessment/Plan Assessment/Plan Assessment (1) Gastroenteritis ICD Codes: K52.9 - Noninfective gastroenteritis and colitis, unspecified SNOMED: 00790208 (2) Obesity ICD Codes: E66.9 - Obesity, unspecified SNOMED: 952763290, 804220647 (3) S/P cholecystectomy ICD Codes: Z90.49 - Acquired absence of other specified parts of digestive tract SNOMED: 26592485, 23766090, 193954746 (4) Abdominal pain ICD Codes: R10.9 - Unspecified abdominal pain SNOMED: 06689487 (5) Vomiting ICD Codes: R11.10 - Vomiting, unspecified SNOMED: 147466006 Assessment/Plan possible gastroenteritis advance diet fu stool studies dc planning Subjective Allergies: Coded Allergies: POTASSIUM (Verified Allergy, Intermediate, Itching, 07/02/17) Per patient - Allergic to Potassium Pill but No allergic reaction with liquid form of potassium and Banana Subjective much better pain gone tolerating po Objective Last 24 Hour Vital Signs Date Time Temp Pulse Resp B/P (MAP) Pulse Ox O2 Delivery O2 Flow Rate FiO2 07/02/17 12:00 98.8 64 19 133/71 94 Room Air 98.8 07/02/17 08:00 98.2 76 20 140/88 85 Room Air 98.2 07/02/17 04:00 98.5 76 18 131/67 96 Room Air 98.5 07/01/17 20:00 98.8 85 18 152/96 96 Room Air 98.8 07/01/17 16:00 98.7 87 18 99/54 96 Room Air 98.7 Intake and Output 07/01/17 07/02/17 19:00 07:00 Intake Total 1025 ml 825 ml Output Total 200 ml Balance 825 ml 825 ml Intake Oral 200 ml IV Total 825 ml 825 ml Emesis 200 ml # Voids 3 2 Laboratory Tests 07/02/17 06:55: White Blood Count 8.6, Red Blood Count 5.08, Hemoglobin 12.7, Hematocrit 39.1, Mean Corpuscular Volume 77L, Mean Corpuscular Hemoglobin 25.1L, Mean Corpuscular Hemoglobin Concent 32.6, Red Cell Distribution Width 13.8, Platelet Count 198, Mean Platelet Volume 8.0, Neutrophils (%) (Auto) 61.7, Lymphocytes (% ) (Auto) 26.8, Monocytes (%) (Auto) 9.3, Eosinophils (%) (Auto) 1.1, Basophils ( %) (Auto) 1.0, Sodium Level 139, Potassium Level 2.7*L, Chloride Level 103, Carbon Dioxide Level 26, Anion Gap 10, Blood Urea Nitrogen 6L, Creatinine 0.8, Estimat Glomerular Filtration Rate > 60, Glucose Level 114H, Calcium Level 8.9 Height (Feet): 5 Height (Inches): 6.00 Weight (Pounds): 375 Objective Obese AA woman NCAT supple CTA RRR Soft, (+) LUQ > LLQ TTP no edema nonfocal GERARD MCCALL Jul 02, 2017 15:04
--- NOTE | 2017-07-03 13:13 | Discharge Summary ---
Discharge Summary Discharge Summary Discharge Summary DATE OF ADMISSION: 06/29/2017 DATE OF DISCHARGE: 07/02/2017 REASON FOR ADMISSION: 47 years old female with a history of hypertension, presented with diffused lower abdominal pain for few days. Patient with a recent history of acute cholecystitis, status post cholecystectomy in the middle of April. Patient denied fevers or chills. She denied chest pain, shortness of breath. Patient reported several vomiting episodes, non biliary, non bloody. She denied diarrhea, dysuria ,urinary frequency. Due to high BMI of 60.5, unable to do CT scan of abdomen and pelvis at this facility. Abdominal x-ray was done and revealed no evidence of free air or other acute intra-abdominal pathology. Patient was afebrile. Pulse oximetry was stable on room air. WBC -12.4. Stable hemoglobin and hematocrit. Stable lipase, LFT and electrolytes. Urinalysis was negative for evidence of UTI. Patient admitted with diagnosis of abdominal pain, intractable nausea and vomiting, possible gastroenteritis, dehydration, recent history of acute cholecystitis, status post cholecystectomy , morbid obesity CONSULTANTS: pulmonary/critical care Dr. Cuellar ID specialist GI specialist [facility] COURSE: Patient admitted to medical surgical floor . Patient was started on IV fluids. NG tube was inserted to low intermittent suction. Patient initially was kept NPO. GI and ID consults were requested. Per infectious disease doctor, patient had no evidence of acute infection. ID specialist recommended to keep patient off antibiotics and monitor closely. Stool for C. difficile was negative. Abdominal ultrasound was ordered, however patient declined. Patient was treated symptomatically: antiemetics provided as needed. GI closely followed. Patient was on IV hydration. Pain management provided. Renal parameters and electrolytes were closely monitored. Potassium was replaced. Nephrotoxics were avoided. Nausea and vomiting subsided. NG tube was discontinued. Patient subsequently was started on clear liquid diet. Patient was able to tolerate liquid diet. Patient clinically improved. Pain nausea and vomiting all resolved. <ild leukocytosis resolved as well. Patient was stable for discharge home. FINAL DIAGNOSES: Abdominal pain Intractable nausea and vomiting Probable gastroenteritis Dehydration History of acute cholecystitis, status post cholecystectomy Hypokalemia Morbid obesity DISCHARGE MEDICATIONS: See Medication Reconciliation list. DISCHARGE INSTRUCTIONS: Patient was discharged home Follow up with primary care provide in one week. I have been assigned to dictate discharge summary for this account. I was not involved in the patient's management. [place] ([facility])Krista NP Jul 03, 2017 13:13
== END 2017-07-02 14:35 | disposition home or self-care (01) | DRG 249 ==
LOC: EDBD 19:26 → EMR 20:20 → EDBEDREQ 21:38 → 3E 21:59 → EDBEDREQ 22:37 → 3E 07-02 07:13
DX: E86.0 Dehydration (principal); K52.9 Noninfective gastroenteritis and colitis, unspecified; Z68.44 Body mass index [BMI] 60.0-69.9, adult; I10 Essential (primary) hypertension; E66.01 Morbid (severe) obesity due to excess calories; R10.9 Unspecified abdominal pain; R11.2 Nausea with vomiting, unspecified; E87.6 Hypokalemia; Z88.8 Allergy status to other drugs, medicaments and biological substances; Z90.49 Acquired absence of other specified parts of digestive tract
CPT/HCPCS: 36415; 74018; 74019; 76700; 80048; 80053; 81003; 81025; 82150; 83690; 85025; 85730; 87045; 87324; 99285; J2405; J2765